=== PATIENT | female | born 1995 | race Caucasian/White ===

== ENCOUNTER 2023-04-05 07:55 | Day surgery (SDC) | payer OTHER, SELFPAY ==
[2023-04-05] VITALS (16 sets, daily range): BP systolic 121–137; BP diastolic 75–92; PULSE 64–88; RESP 16–20; TEMP 36.2–36.6; O2SAT 94–100; BMI 30.4
[2023-04-05] MEDS: LACTATED RINGERS 1000 ML 1,000 ML 100 ML IV (08:15)
[2023-04-05 08:24] LABS: Ur HCG Qualitative* Negative (Negative)
--- NOTE | 2023-04-05 08:27 | W.ANESCHARGE ---
Anesthesia Charges Start Date/Time Anesthesia Start Date: 04/05/23 Anesthesia Start Time: 08:48 Stop Date/Time Anesthesia Stop Date: 04/05/23 Anesthesia Stop Time: 10:22
[2023-04-05] MEDS: SODIUM CHLORIDE 0.9 % (FLUSH) 10 ML SYRINGE IVF (08:42)
[2023-04-05] MEDS: BUPIVACAINE 0.5% 30 ML INJECTION (09:05)
--- NOTE | 2023-04-05 10:09 | W.ANESCHARGE ---
Anesthesia Charges Start Date/Time Anesthesia Start Date: 04/05/23 Anesthesia Start Time: 08:48 Stop Date/Time Anesthesia Stop Date: 04/05/23 Anesthesia Stop Time: 10:22
--- NOTE | 2023-04-05 10:24 | P.GSOP_ITS ---
Operative Note Date of procedure: 04/05/23 Pre-op diagnosis: Biliary colic Post-op diagnosis: Same Type of Procedure: Laparoscopic cholecystectomy Indications: Patient is a 28-year-old female, who was seen in clinic for biliary colic. I had a detailed conversation with the patient regarding the diagnosis of biliary colic. We discussed the treatment options including observation with diet modification and laparoscopic cholecystectomy. We discussed the risks of surgery (including but not limited to) the risks of bleeding, infection, injury to other structures in the abdomen including bile duct injury, bile leak and conversion to an open operation. We discussed the possibility that the patient's pain not improve with surgery. We discussed the possibility of permanent post-operative diarrhea that may require medical management. Additionally, the conceivably of complications requiring additional surgery or further hospitalization were also discussed including the risks of ME, respiratory failure, stroke and blood clots. The patient voiced an understanding of our conversation, had the opportunity to ask questions, agreed to accept the risks of surgery and asked that we proceed with surgery. Procedure Description: After discussing the risks and benefits of the procedure, the patient signed informed consent.? The operative site was marked and the patient was brought to the operating room and placed on the operating table in supine position.? Care was taken to pad the patient's pressure points.?? The patient was then intubated by anesthesia.?? The operative site was then prepped and draped in the usual sterile fashion.? A time-out was then performed. Entrance to the abdomen was gained via a 5 mm Visiport in the left upper quadrant. The abdomen was insufflated and briefly surveyed for signs of injury. There was none. 11 mm umbilical port was placed as well as 2 working ports along the right costal margin. Patient was then placed in reverse Trendelenburg position with the right side up. The gallbladder fundus was grasped and retracted cephalad. A small amount of dissection was needed to free omental adhesions from the gallbladder. The infundibulum was grasped. A combination of hook cautery and blunt dissection was used to carefully dissect out the cystic duct and artery until they could clearly be seen entering the gallbladder without any intervening structures. The gallbladder was dissected off the cystic plate to achieve the critical view. Once this was achieved the cystic duct and artery were each clipped with 2 clips proximally and 1 clip distally and transected with the scissors. The gallbladder was then taken off of the liver bed. And removed from the abdomen using an Endo-Catch bag. The gallbladder bed was surveyed for hemostasis. The umbilical port fascia was closed with 0 Vicryl via a figure of eight stitch. All ports were removed under direct visualiza tion. The skin was closed with absorbable subcuticular suture. Instrument sponge and needle counts were correct at the end of the case. The patient was then woken and transferred to the PACU in stable condition. Findings: Cholelithiasis. Surgeon: Grace Soliman MD Estimated blood loss (mL): 5 Specimen: Gallbladder Condition: stable Disposition: PACU
[2023-04-05] MEDS: fentaNYL 100 MCG/2 ML inj 50 MCG IVP (10:53)
[2023-04-05] MEDS: METOCLOPRAMIDE HCL 5 MG/ML INJ 10 MG IVP (11:37)
--- NOTE | 2023-04-05 12:45 | SUR.PHASEII ---
Pt complains of continued nausea. Zofran and Reglan given. Pt states she would just like to go home.
== END 2023-04-05 12:49 | disposition home or self-care (01) ==
PROVIDERS: PCP Family Medicine; Visit Provider Surgery
PROC: 0FT44ZZ Resection of Gallbladder, Percutaneous Endoscopic Approach (ICD-10-PCS; CPT 47562; principal; 2023-04-05 09:15)
DX: K80.10 Calculus of gallbladder with chronic cholecystitis without obstruction (principal)
CPT/HCPCS: 47562; 00790; 81025; 88304; J0330; J1100; J1170; J1885; J2250; J2405; J2704; J2710; J2765; J3010; J3490; J7120

== ENCOUNTER 2025-06-03 13:10 | Observation (INO) | payer OTHER, SELFPAY ==
[2025-06-03] VITALS (10 sets, daily range): BP systolic 121–151; BP diastolic 70–96; PULSE 91–115; RESP 20–30; TEMP 36.8–39.2; O2SAT 93–98; BMI 30.2
--- NOTE | 2025-06-03 13:30 | PM.IMHP1 ---
Assessment and Plan Assessment and plan (1) Pneumonia: Problem comment: Clinically patient appears to have an influenza like illness now with pulmonary infiltrate. Will treat for community-acquired pneumonia. Status: Acute (2) Dehydration: Problem comment: Due to poor appetite and vomiting she has been unable to maintain nutrition or hydration. Initially will provide IV fluids until she can not tolerate oral fluids well. Status: Acute Plan 30-year-old female with pneumonia and dehydration. She is admitted the hospital for IV fluids, IV antibiotics pending clinical course. Total Time Spent Total Time Spent: Total time spent today is 50 minutes Hospitalist- H&P: HPI History of Present Illness Date Seen: 06/03/25 Chief complaint: direct admit Narrative: Carlee Da Silva is a 30 year old female presents with a 5 day history of cough fever and vomiting. Patient was in her usual state of health until SundayMay 30 when she developed cough and fever. The next day she had some vomiting. Since then she has continued to have cough fever and vomiting. She has had prominent fatigue and malaise. She feels weak and dizzy when she gets up to walk. She has had a very poor appetite with poor oral intake in the last few days. She was seen in the emergency department in [place] yesterday where she was diagnosed with pneumonia. She was prescribed doxycycline and Augmentin. She did not get those prescriptions filled because the pharmacy was closed by the time she left. Today she felt too ill to go to the pharmacy and get medicine. She went to clinic where she was referred to the emergency department for further evaluation. Evaluation in the [place] Emergency Department includes negative viral studies for COVID RSV and influenza, normal CBC and basic metabolic panel, relatively unremarkable urinalysis, negative urine test D-dimer of 0.44, negative troponin and negative LFTs. Blood cultures are pending. Strep test was negative. Chest x-ray showed a left perihilar basilar pneumonia. She has no previous history of chronic lung disease except she reports exercise-induced asthma. She does not know any taken asthma inhaler except associated with exercise. She does not smoke. She has no occupational hazards for lung disease. She has had no exposures to anybody else who has been ill. 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 She lives with her parents and her son who are also well. Recent travel was to [facility] where she stayed Sunday through Sunday of last week with her family. Primary activity was fishing. Review of Systems Narrative: Review of systems is unremarkable except as noted above Medical Decision Making Medical Decision Making Has patient completed a Health Care Directive: No PFSH PFS Medical History (Updated 06/03/25 @ 13:42 by Naman Peck MD) Exercise-induced asthma ?J45.990 - Exercise induced bronchospasm (ICD-10) Endometriosis ?N80.9 - Endometriosis, unspecified (ICD-10) History of vaginal delivery (01/30/20) Gestational diabetes mellitus (GDM) ?O24.419 - Gestational diabetes mellitus in , unspecified control (ICD-10) Surgical History (Updated 08/17/23 @ 10:36 by Shantel Moe) History of laparoscopic cholecystectomy (04/05/23) ?Z90.49 - Acquired absence of other specified parts of digestive tract (ICD-10) Family History (Updated 06/03/25 @ 13:37 by Naman Peck MD) Father Coronary artery disease Mother Breast cancer Social History (Updated 06/03/25 @ 13:38 by Naman Peck MD) Narrative: She lives in [place] with her 5-year-old son and her parents. 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 She does not smoke. She does not drink alcohol. She does not use recreational drugs. What is your current living situation?: I presently have a place to live Problems where you live: no known problems In the past 12 months, utilities in danger of being shut off: no In past 12 months, lack of transportation kept you from medical appts, meetings, work, or getting things needed for daily living: no In the past 12 mos, have been you worried that your food would run out before you had money to buy more?: never true In the past 12 mos, the food you bought just didn't last and you didn't have money to buy more?: never true Smoking Status: Never smoker Do you use any of these nicotine containing products: None How often do you have a drink containing alcohol: monthly or less How many standard drinks containing alcohol do you have on a typical day: 1 or 2 How often do you have six or more drinks on one occasion: Never AUDIT-C Alcohol total score: 1 Non-prescribed substance use: denies use Caffeine: Yes How often does anyone, including family, friends and others, physically hurt you: never How often does anyone, including family, friends and others, insult or talk down to you: never How often does anyone, including family, friends and others, threaten you with harm: never How often does anyone, including family, friends and others, scream or curse at you: never Are you using contraception or practicing any form of control: Yes Meds Home Medications and Allergies Home Medications ?Medication ?Instructions ?Recorded ?Confirmed ?Type albuterol sulfate 90 mcg/actuation 1 inh inhalation Q4-6H PRN 04/05/23 06/03/25 History aerosol inhaler famotidine 20 mg tablet 20 mg PO DAILY 04/05/23 06/03/25 History ibuprofen 800 mg tablet 800 mg PO 3XD PRN 08/22/23 06/03/25 History rizatriptan 10 mg disintegrating 10 mg PO BID PRN migraine 08/22/23 06/03/25 History tablet clindamycin phosphate 1 % lotion 1 applic topical DAILY PRN 06/03/25 06/03/25 History clobetasol 0.05 % topical cream 1 applic topical BID PRN 06/03/25 06/03/25 History metoclopramide HCl 5 mg tablet 5 - 10 mg PO Q6H PRN 06/03/25 06/03/25 History Allergies Allergy/AdvReac Type Severity Reaction Status Date / Time No Known Drug Allergies Allergy Verified 08/22/23 14:12 Exam Narrative: Exam Narrative: She is alert and appears in no obvious distress. She gives her own history. Eyes normal. Oropharynx normal. Neck is supple without mass or adenopathy. Respirations are clear to auscultation without wheezing rales or rhonchi. Cardiovascular: S1, S2, regular rate and rhythm. Abdomen: Bowel sounds active. Abdomen is soft without tenderness or mass. Extremities with good perfusion, good pulses, no edema. No rash. Const: Vital Signs, click to edit/add: Vital Signs - 24 hr 06/03/25 13:14 06/03/25 13:14 06/03/25 13:14 Temperature 99.4 F Pulse Rate [Right Radial] 115 H Respiratory Rate 30 H Blood Pressure [Ri ght Arm] 145/96 H Pulse Oximetry 98 98 98 Oxygen Delivery Me thod Room Air Room Air 06/03/25 13:17 Temperature 99.4 F Pulse Rate [Right Radial] 115 H Respiratory Rate 30 H Blood Pressure [Ri ght Arm] 145/96 H Pulse Oximetry 98 Oxygen Delivery Me thod Room Air Documenting provider has reviewed patient's vital signs: yes Hospitalist - H&P: Result Imaging Chest x-ray: Radiologist's impression: From [facility] on 06/02/2025: Chest xray: FINDINGS: The heart and pulmonary vasculature are normal. There is a faint infiltrate in the left perihilar/basilar region consistent with pneumonia.
[2025-06-03 13:43] LABS: Hematocrit* 39.5 % (33.0-51.0); Hemoglobin* 13.2 gm/dL (12.0-16.0); Immature Granulocytes Abs Auto 0.01 K/uL (0.00-0.30); Immature Granulocytes Pct Auto 0.1 %; Mean Corpuscular HGB Conc 33 gm/dL (32-36); Mean Corpuscular Hemoglobin 27 pg (26-34); Mean Corpuscular Volume 82 fL (80-100); RDW Coefficient of Variation % 12.3 % (11.5-15.5); Red Blood Count* 4.82 m/uL (4.00-5.20); White Blood Count* 9.51 K/uL (4.50-11.00)
[2025-06-03 14:08] LABS: Lymphocytes Absolute Auto 0.90 K/uL (0.90-2.90); Slide Review Reflex No
[2025-06-03] MEDS: LACTATED RINGERS 1000 ML 1,000 ML IV (14:20)
[2025-06-03] MEDS: cefTRIAXone 2 GM in 0.9 % SODIUM CHLORIDE Mini-bag 100 ML IVPB (14:20)
[2025-06-03] MEDS: DOXYCYCLINE HYCLATE 100 MG PO ×2 (14:21→21:23)
[2025-06-03 14:25] LABS: Chloride* 101 mmol/L (96-114); Sodium* 134 mmol/L (135-149)
[2025-06-03 14:26] LABS: Potassium* 3.9 mmol/L (3.6-5.1)
[2025-06-03 14:29] LABS: Anion Gap 8 mEq/L (7-15); Blood Urea Nitrogen* 7 mg/dL (5-24); Calcium* 9.4 mg/dL (8.4-10.6); Carbon Dioxide* 25 mmol/L (20-32); Creatinine* 0.8 mg/dL (0.5-1.5); Est. Creatinine Clearance* 115.97; Estimated Glomerular Filt Rate 102 ml/min; Glucose* 146 mg/dL (60-115)
[2025-06-03] MEDS: BENZOCAINE/MENTHOL 1 EACH LOZENGE MUCOUS MEM (14:43)
[2025-06-03] MEDS: LACTATED RINGERS 1000 ML 1,000 ML 125 ML IV ×2 (15:18→21:23)
[2025-06-03] MEDS: ACETAMINOPHEN 500 MG TABLET 1000 MG PO (15:39)
--- NOTE | 2025-06-03 15:50 | RESP.RT ---
Pt seen upon arrival from clinic. ON RA, spo2 96% RR 26 BBS clear, decreased in bases. 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 Do not start aerobika until cough is not as frequent, if it is indicated at that time of assesment If SPO2 decreased to around 92%, start low flow oxygen.
[2025-06-03] MEDS: IBUPROFEN 400 MG TABLET PO ×2 (18:19→23:51)
--- NOTE | 2025-06-03 18:40 | PC.NURSE ---
End of shift: Patient pleasant and cooperative, A&O. T max this shift 102.6, gave PRN Tylenol,?all other VSS. SpO2 maintained above 92% on RA. Patient has a dry cough. Tolerating regular diet. Independent in room. ?
[2025-06-03] MEDS: ONDANSETRON 2 MG/ML inj 4 MG IVP (23:51)
[2025-06-04] MEDS: BENZOCAINE/MENTHOL 1 EACH LOZENGE MUCOUS MEM (02:25)
[2025-06-04 02:33] VITALS: BP 134/86; PULSE 98; RESP 16; TEMP 36.8; O2SAT 93
[2025-06-04 07:00] VITALS: BP 137/87; PULSE 91; RESP 20; TEMP 36.6; O2SAT 97
[2025-06-04 11:00] VITALS: BP 127/90; PULSE 102; RESP 16; TEMP 36.8; O2SAT 97
[2025-06-04] MEDS: DOXYCYCLINE HYCLATE 100 MG PO (12:08)
[2025-06-04] MEDS: SODIUM CHLORIDE 0.9 % (FLUSH) 10 ML SYRINGE 5 ML IVF (12:09)
--- NOTE | 2025-06-04 13:40 | PM.DS1 ---
DS: Providers Provider Date Seen: 06/04/25 Date of admission: 06/03/25 13:10 Primary care physician: Subha Peralta MD Admitting Clinician: Naman Peck MD Attending Physician on discharge: Naman Peck MD Date of Discharge: 06/04/25 DS: Diagnosis Discharge Diagnosis (1) Pneumonia: Status: Acute Problem details: Clinically patient appears to have an influenza like illness now with pulmonary infiltrate. Will treat for community-acquired pneumonia. (2) Dehydration: Status: Acute Problem details: Due to poor appetite and vomiting she has been unable to maintain nutrition or hydration. Now Tolerating p.o. fluids. DS: Summary Hospital Course Hospital Course: Carlee Da Silva is a 30 year old female presents with a 5 day history of cough fever and vomiting. Patient was in her usual state of health until SundayMay 30 when she developed cough and fever. The next day she had some vomiting. Since then she has continued to have cough fever and vomiting. She has had prominent fatigue and malaise. She feels weak and dizzy when she gets up to walk. She has had a very poor appetite with poor oral intake in the last few days. She was seen in the emergency department in [place] yesterday where she was diagnosed with pneumonia. She was prescribed doxycycline and Augmentin. She did not get those prescriptions filled because the pharmacy was closed by the time she left. Today she felt too ill to go to the pharmacy and get medicine. She went to clinic where she was referred to the emergency department for further evaluation. Evaluation in the [place] Emergency Department includes negative viral studies for COVID RSV and influenza, normal CBC and basic metabolic panel, relatively unremarkable urinalysis, negative urine test D-dimer of 0.44, negative troponin and negative LFTs. Blood cultures are pending. Strep test was negative. Chest x-ray showed a left perihilar basilar pneumonia. She has no previous history of chronic lung disease except she reports exercise-induced asthma. She does not know any taken asthma inhaler except associated with exercise. She does not smoke. She has no occupational hazards for lung disease. She has had no exposures to anybody else who has been ill. 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 She lives with her parents and her son who are also well. Recent travel was to [facility] where she stayed Sunday through Sunday of last week with her family. Primary activity was fishing. Patient received treatment for community-acquired pneumonia with ceftriaxone and doxycycline. For dehydration she received IV fluids. She had 1 emesis last night but has since tolerated p.o. fluids. She has not required oxygen and vital signs have been normal except for a mild tachycardia. She continues to feel prominent fatigue and malaise and have an ongoing cough Time Spent with Patient Time attestation: Total time spent providing and/or coordinating discharge services: Exam Narrative: Exam Narrative: She is alert and appears in no distress. Respirations are clear to auscultation except for few crackles at the left base. Cardiovascular: S1, S2, regular rate and rhythm. Abdomen is soft without tenderness extremities without edema. Const: Vital Signs, click to edit/add: Vital Signs - 24 hr 06/03/25 13:51 06/03/25 14:45 06/03/25 15:00 Temperature 102.6 F H Pulse Rate [Pulse Oximeter] Pulse Rate [Right Radial] Respiratory Rate 30 H Blood Pressure [Ri ght Arm] Pulse Oximetry 98 95 Oxygen Delivery Me thod Room Air 06/03/25 15:00 06/03/25 15:00 06/03/25 15:15 Temperature 101.3 F H Pulse Rate [Pulse Oximeter] 111 H 111 H Pulse Rate [Right Radial] Respiratory Rate 24 24 24 Blood Pressure [Ri ght Arm] 151/88 H Pulse Oximetry 95 [facility] 06/03/25 15:39 06/03/25 17:34 06/03/25 19:00 Temperature 101.3 F H 100.3 F H 98.3 F Pulse Rate [Pulse Oximeter] 91 Pulse Rate [Right Radial] Respiratory Rate 20 Blood Pressure [Ri ght Arm] 124/73 Pulse Oximetry 93 Oxygen Delivery De thod Room Air 06/03/25 23:00 06/03/25 23:00 06/03/25 23:00 Temperature Pulse Rate [Pulse Oximeter] 94 Pulse Rate [Right Radial] 94 Respiratory Rate 20 20 Blood Pressure [Ri ght Arm] Pulse Oximetry 94 94 Oxygen Delivery De thod Room Air 06/03/25 23:00 06/04/25 02:33 06/04/25 07:00 Temperature 98.9 F 98.3 F Pulse Rate [Pulse Oximeter] 94 98 Pulse Rate [Right Radial] Respiratory Rate 20 16 Blood Pressure [Ri ght Arm] 121/70 134/86 Pulse Oximetry 94 93 97 Oxygen Delivery Me thod Room Air Room Air 06/04/25 07:00 06/04/25 07:00 06/04/25 11:00 Temperature 97.8 F 98.2 F Pulse Rate [Pulse Oximeter] 91 102 H Pulse Rate [Right Radial] Respiratory Rate 20 20 16 Blood Pressure [Ri ght Arm] 137/87 127/90 H Pulse Oximetry 97 97 97 Oxygen Delivery Me thod Room Air Room Air Room Air DS: Data Data Completed and Pending Labs on day of discharge: Labs from last 24 hours 06/03/25 13:38 WBC 9.51 RBC 4.82 Hgb 13.2 Hct 39.5 MCV 82 MCH 27 MCHC 33 RDW Coeff of Jayashree 12.3 Plt Count 353 Neut % (Auto) 83.5 H Lymph % (Auto) 9.0 L [place] % (Auto) 7.2 Eos % (Auto) 0.0 Baso % (Auto) 0.2 Neut # (Auto) 7.90 H Lymph # (Auto) 0.90 [place] # (Auto) 0.70 Eos # (Auto) 0.00 Baso # (Auto) 0.02 Abs Immat Gran (auto) 0.01 Imm/Tot Granulo (auto) 0.1 Sodium 134 L Potassium 3.9 Chloride 101 Carbon Dioxide 25 Anion Gap 8 BUN 7 Creatinine 0.8 Estimated Creat Clear 115.97 Estimated GFR 102 Glucose 146 H Calcium 9.4 C-Reactive Protein 13.1 H Discharge Plan Discharge Disposition: Home, Self-Care Date of Admission: 06/03/25 13:10 Attending Provider on Discharge: Naman Peck Primary Care Provider: Subha Peralta Condition: Improved Anticipated Discharge Date/Time: 06/04/25 15:00 Discharge Medications: Continued ibuprofen 800 mg tablet 800 mg PO TID PRN rizatriptan 10 mg tablet,disintegrating 10 mg PO BID PRN (Reason: migraine) albuterol sulfate 90 mcg/actuation HFA aerosol inhaler 1 inh inhalation Q4-6H PRN famotidine 20 mg tablet 20 mg PO BID PRN clindamycin phosphate 1 % lotion 1 applic TOPICAL DAILY PRN clobetasol 0.05 % cream 1 applic topical BID PRN metoclopramide HCl 5 mg tablet 5 - 10 mg PO Q6H PRN ketoconazole 2 % shampoo 1 applic topical 4XW PRN doxycycline hyclate 100 mg tablet 100 mg PO BID amoxicillin-pot clavulanate 875-125 mg tablet 1 tab PO BID Discharge Orders: Discharge Order (Routine); Ordered 06/04/25 Ordered By: Naman Peck Activity Level: Activity as Tolerated Discharge Diet: Regular Follow Up Appointments: Subha Peralta MD [Primary Care Provider, Family Practice] Referral Note: Follow-up in 1 week if not better or sooner if getting worse Forms: Patient Belongings, MyHealth Info Instructions
[2025-06-04] MEDS: cefTRIAXone 2 GM in 0.9 % SODIUM CHLORIDE Mini-bag 100 ML IVPB (13:52)
== END 2025-06-04 14:49 | disposition home or self-care (01) ==
PROVIDERS: Admitting Provider Family Medicine; PCP Family Medicine; Visit Provider Family Medicine
DX: J18.9 Pneumonia, unspecified organism (principal); E86.0 Dehydration
CPT/HCPCS: 36415; 80048; 85025; 86140; 87631; 96365; 96375; 99284; 99285; A9270; G0378; G0379; J0696; J2405; J7120